=== PATIENT | male | born 1960 | race Caucasian/White ===

== ENCOUNTER 2017-08-15 18:18 | Observation (INO) | payer OTHER ==
[~2017-08-15] VITALS: Ht 172.7 cm; Wt 84.6 kg
[2017-08-15 19:15] LABS: BASOPHILS ABSOLUTE AUTO 0.05 K/mm3 (0.00-0.23); BASOPHILS PERCENT AUTO 0 % (0-2); Base Excess Venous -3.3 mmol/L; Bicarbonate Venous 22.5 mmol/L (24.0-30.0); EOSINOPHILS PERCENT AUTO 2 % (0-6); Hematocrit 41.8 % (37.0-53.0); Hemoglobin 14.2 g/dL (13.5-17.5); IMMATURE GRAN ABSOLUTE AUTO 0.06 K/mm3 (0.00-0.10); IMMATURE GRAN PERCENT AUTO 1 % (0-1); LYMPHOCYTES ABSOLUTE AUTO 3.19 K/mm3 (0.84-5.20); LYMPHOCYTES PERCENT AUTO 27 % (21-46); MONOCYTES ABSOLUTE AUTO 0.82 K/mm3 (0.16-1.47); MONOCYTES PERCENT AUTO 7 % (4-13); Mean Corpuscular HGB 30.8 pg (26.0-34.0); Mean Corpuscular Volume 91 fL (80-100); Mean Platelet Volume 11.1 fL (9.1-12.4); NEUTROPHILS ABSOLUTE AUTO 7.64 K/mm3 (1.96-9.15); NEUTROPHILS PERCENT AUTO 64 % (41-73); PCO2 Venous 30.9 mmHg (38-42); PO2 Venous 138 mmHg (38-42); Platelet Count 215 K/mm3 (150-400); RDW Coefficient Variation 12.6 % (11.7-14.2); RDW Standard Deviation 40.8 fL (35.1-46.3); Red Blood Cell Count 4.61 M/mm3 (4.30-5.90); White Blood Cell Count 11.96 K/mm3 (4.00-11.30); pH Blood Venous 7.44 (7.34-7.37)
[2017-08-15 19:33] LABS: Alanine Aminotransfer (ALT/SGP 47 U/L (12-78); Albumin/Globulin Ratio 0.8 (0.8-1.8); Alk Phos 140 U/L (50-136); Anion Gap 10 mmol/L (6-16); Aspartate Aminotrans (AST/SGOT 21 U/L (12-37); Bilirubin, Total 0.3 mg/dL (0.1-1.0); Blood Urea Nitrogen 21 mg/dL (8-24); Bun/Creatinine Ratio 22.8 (12.0-20.0); CO2, Blood 22 mmol/L (21-32); Calcium, Blood 8.4 mg/dL (8.5-10.1); Chloride, Blood 99 mmol/L (98-108); Creatinine, Blood 0.92 mg/dL (0.60-1.20); Globulin, Blood 3.8 g/dL (2.2-4.0); Glomerular Filtration Rate >60 (60-); Potassium, Blood 4.4 mmol/L (3.5-5.5); Sodium, Blood 131 mmol/L (136-145); Total Protein, Blood 6.8 g/dL (6.4-8.2)
[2017-08-15 19:49] LABS: Beta-hydroxybutyrate 7.8 mg/dL (0.2-2.8)
[2017-08-15 20:27] LABS: Glucose, Blood 671 mg/dL (70-99); Troponin I <0.015 ng/mL (0.000-0.040)
[2017-08-15] MEDS ORDERED: [UNRECOGNIZED DRUG - CODE] PO (22:06)
[2017-08-15] MEDS ORDERED: [UNRECOGNIZED DRUG - CODE] (22:09)
[2017-08-15] MEDS ORDERED: METF500 PO (23:26)
[2017-08-15] MEDS ORDERED: LISI20 PO (23:33)
[2017-08-15] MEDS ORDERED: LEVSOD100 PO (23:35)
[2017-08-16 00:15] LABS: CPK Creatine Kinase 34 U/L (39-308); Creatine Kinase MB 0.6 ng/mL (0.0-3.6); Creatine Kinase MB Index 1.8 (0.0-4.0); Troponin I <0.015 ng/mL (0.000-0.040)
[2017-08-16 01:18] LABS: Influenza A Negative (NEGATIVE); Influenza B Negative (NEGATIVE)
[2017-08-16 03:46] LABS: Source, Urine Clean Catch
[2017-08-16 03:47] LABS: Bilirubin, Urine Neg (Neg); Blood, Urine Neg (Neg); Glucose Qualitative, Urine 4+ (Neg); Ketones, Urine 1+ (Neg); Leukocyte Esterase, Urine Neg (Neg); Nitrite, Urine Neg (Neg); Protein, Urine Neg (Neg); Urobilinogen, Urine NORM (Normal)
[2017-08-16 03:50] LABS: Appearance, Urine Clear (Clear); Color, Urine Yellow (P-Yellow)
[2017-08-16 04:19] LABS: BASOPHILS ABSOLUTE AUTO 0.03 K/mm3 (0.00-0.23); BASOPHILS PERCENT AUTO 0 % (0-2); EOSINOPHILS ABSOLUTE AUTO 0.24 K/mm3 (0.00-0.68); EOSINOPHILS PERCENT AUTO 2 % (0-6); Hematocrit 38.1 % (37.0-53.0); Hemoglobin 13.2 g/dL (13.5-17.5); IMMATURE GRAN ABSOLUTE AUTO 0.04 K/mm3 (0.00-0.10); IMMATURE GRAN PERCENT AUTO 0 % (0-1); LYMPHOCYTES ABSOLUTE AUTO 4.32 K/mm3 (0.84-5.20); LYMPHOCYTES PERCENT AUTO 33 % (21-46); MONOCYTES ABSOLUTE AUTO 0.78 K/mm3 (0.16-1.47); MONOCYTES PERCENT AUTO 6 % (4-13); Mean Corpuscular HGB 31.5 pg (26.0-34.0); Mean Corpuscular HGB Conc 34.6 g/dL (31.5-36.5); Mean Corpuscular Volume 91 fL (80-100); Mean Platelet Volume 10.7 fL (9.1-12.4); NEUTROPHILS ABSOLUTE AUTO 7.54 K/mm3 (1.96-9.15); NEUTROPHILS PERCENT AUTO 58 % (41-73); Platelet Count 191 K/mm3 (150-400); RDW Coefficient Variation 12.4 % (11.7-14.2); RDW Standard Deviation 40.8 fL (35.1-46.3); Red Blood Cell Count 4.19 M/mm3 (4.30-5.90); White Blood Cell Count 12.95 K/mm3 (4.00-11.30)
[2017-08-16 04:42] LABS: CPK Creatine Kinase 33 U/L (39-308); Creatine Kinase MB 0.7 ng/mL (0.0-3.6); Creatine Kinase MB Index 2.1 (0.0-4.0); Troponin I <0.015 ng/mL (0.000-0.040)
[2017-08-16 04:43] LABS: Anion Gap 7 mmol/L (6-16); Blood Urea Nitrogen 21 mg/dL (8-24); Bun/Creatinine Ratio 27.2 (12.0-20.0); CO2, Blood 23 mmol/L (21-32); Calcium, Blood 7.7 mg/dL (8.5-10.1); Chloride, Blood 109 mmol/L (98-108); Cholesterol 79 mg/dL (50-200); Creatinine, Blood 0.77 mg/dL (0.60-1.20); Glomerular Filtration Rate >60 (60-); Glucose, Blood 326 mg/dL (70-99); Potassium, Blood 4.3 mmol/L (3.5-5.5); Sodium, Blood 139 mmol/L (136-145); Triglycerides 219 mg/dL (30-160)
[2017-08-16] MEDS ORDERED: ALBU90OI INH (14:59)
[2017-08-16] MEDS ORDERED: ASPI81CH PO (15:00)
[2017-08-16] MEDS ORDERED: BASAGLAR K100 UNIT/1 SC (15:01)
[2017-08-16] MEDS ORDERED: LISI20 PO (15:02)
[2017-08-16] MEDS ORDERED: AZIT500 PO (15:03)
[2017-08-16] MEDS ORDERED: Omeprazole20 M1 PO (15:04)
== END 2017-08-16 16:20 | disposition home or self-care (01) ==
LOC: ER 18:18 → MEDS 18:19 → ENPENDDIS 08-16 11:00 → MEDS 08-16 16:20
PROVIDERS: Emergency Medicine; Family Medicine
DX: E11.65 Type 2 diabetes mellitus with hyperglycemia (principal); I10 Essential (primary) hypertension; E87.1 Hypo-osmolality and hyponatremia; E03.9 Hypothyroidism, unspecified; R07.89 Other chest pain; D72.829 Elevated white blood cell count, unspecified; E11.10 Type 2 diabetes mellitus with ketoacidosis without coma; J44.9 Chronic obstructive pulmonary disease, unspecified; K00.7 Teething syndrome; Z79.01 Long term (current) use of anticoagulants; Z79.82 Long term (current) use of aspirin; Z79.2 Long term (current) use of antibiotics; Z79.899 Other long term (current) drug therapy; Z79.4 Long term (current) use of insulin; Z87.891 Personal history of nicotine dependence; Z88.5 Allergy status to narcotic agent
CPT/HCPCS: 36415; 71045; 80048; 80053; 81003; 82010; 82465; 82550; 82553; 82803; 82947; 83036; 84443; 84478; 84484; 85025; 87804; 93005; 93010; 94760; 96360; 96361; 96372; 96374; 99285; C9113; G0378; J1650; J1815; J7030

== ENCOUNTER 2019-08-08 22:25 | Emergency (ER) | payer OTHER ==
[~2019-08-08] VITALS: Ht 175.3 cm; Wt 90.7 kg
[~2019-08-08 22:25] MED LIST: ALBU90OI INH; ASPI81CH PO; AZIT500 PO; BASAGLAR K100 UNIT/1 SC; LEVSOD100 PO; LISI20 PO; METF500 PO; Omeprazole20 M1 PO; [UNRECOGNIZED DRUG - CODE]; [UNRECOGNIZED DRUG - CODE] PO
[2019-08-08 23:05] LABS: BASOPHILS ABSOLUTE AUTO 0.04 K/mm3 (0.00-0.23); BASOPHILS PERCENT AUTO 0 % (0-2); EOSINOPHILS ABSOLUTE AUTO 0.34 K/mm3 (0.00-0.68); EOSINOPHILS PERCENT AUTO 2 % (0-6); Hematocrit 40.2 % (37.0-53.0); Hemoglobin 13.3 g/dL (13.5-17.5); IMMATURE GRAN ABSOLUTE AUTO 0.08 K/mm3 (0.00-0.10); IMMATURE GRAN PERCENT AUTO 0 % (0-1); LYMPHOCYTES ABSOLUTE AUTO 3.03 K/mm3 (0.84-5.20); LYMPHOCYTES PERCENT AUTO 17 % (21-46); MONOCYTES ABSOLUTE AUTO 1.29 K/mm3 (0.16-1.47); MONOCYTES PERCENT AUTO 7 % (4-13); Mean Corpuscular HGB 31.7 pg (26.0-34.0); Mean Corpuscular HGB Conc 33.1 g/dL (31.5-36.5); Mean Corpuscular Volume 96 fL (80-100); Mean Platelet Volume 9.7 fL (9.1-12.4); NEUTROPHILS ABSOLUTE AUTO 13.34 K/mm3 (1.96-9.15); NEUTROPHILS PERCENT AUTO 74 % (41-73); Platelet Count 262 K/mm3 (150-400); RDW Coefficient Variation 13.8 % (11.7-14.2); White Blood Cell Count 18.12 K/mm3 (4.00-11.30)
[2019-08-08] MEDS ORDERED: PIOGLITAZONE HC15 MG PO (23:18)
[2019-08-08] MEDS ORDERED: Doxazosin Mesyla4 MG PO (23:18)
[2019-08-08] MEDS ORDERED: INSULANPEN SC (23:18)
[2019-08-08 23:25] LABS: Alanine Aminotransfer (ALT/SGP 33 U/L (12-78); Albumin, Blood 3.4 g/dL (3.4-5.0); Albumin/Globulin Ratio 0.9 (0.8-1.8); Alk Phos 87 U/L (50-136); Anion Gap 9 mmol/L (6-16); Aspartate Aminotrans (AST/SGOT 19 U/L (12-37); Bilirubin, Total 0.2 mg/dL (0.1-1.0); Blood Urea Nitrogen 14 mg/dL (8-24); Bun/Creatinine Ratio 14.4 (12.0-20.0); CO2, Blood 25 mmol/L (21-32); Calcium, Blood 8.8 mg/dL (8.5-10.1); Chloride, Blood 106 mmol/L (98-108); Creatinine, Blood 0.97 mg/dL (0.60-1.20); Globulin, Blood 3.9 g/dL (2.2-4.0); Glomerular Filtration Rate >60 (60-); Glucose, Blood 77 mg/dL (70-99); Potassium, Blood 4.4 mmol/L (3.5-5.5); Sodium, Blood 140 mmol/L (136-145); Total Protein, Blood 7.3 g/dL (6.4-8.2); Troponin I <0.015 ng/mL (0.000-0.040)
[2019-08-08] MEDS ORDERED: Zithromax250 MG PO (23:28)
[2019-08-08] MEDS ORDERED: ALBU90OI INH (23:28)
[2019-08-08] MEDS ORDERED: Prednisone50 MG PO (23:28)
[2019-08-08] MEDS ORDERED: TIOT18 INH (23:28)
== END 2019-08-09 00:30 | disposition home or self-care (01) ==
LOC: ER 22:25
PROVIDERS: Emergency Medicine
DX: J44.1 Chronic obstructive pulmonary disease with (acute) exacerbation (principal); E11.9 Type 2 diabetes mellitus without complications; I10 Essential (primary) hypertension; E03.9 Hypothyroidism, unspecified; Z88.6 Allergy status to analgesic agent; Z79.82 Long term (current) use of aspirin; Z79.4 Long term (current) use of insulin; Z79.899 Other long term (current) drug therapy; F17.210 Nicotine dependence, cigarettes, uncomplicated
CPT/HCPCS: 36415; 71046; 80053; 84484; 85025; 93005; 93010; 94640; 96374; 99283-25; J1100

== ENCOUNTER 2024-08-20 23:36 | Emergency (ER) | payer MEDICARE, OTHER ==
[~2024-08-20] VITALS: Ht 162.6 cm; Wt 62.6 kg
[~2024-08-20 23:36] MED LIST changes: +Doxazosin Mesyla4 MG PO; +EUTHYROX50 MCG PO; +HUMALOG KW100 UNIT/1; +INSULANPEN SC; -LEVSOD100 PO; +PIOGLITAZONE HC15 MG PO; +Prednisone50 MG PO; +SPIRIVA RESPIMAT4 G3 INH; +TIOT18 INH; +Zithromax250 MG PO
[2024-08-21 00:07] VITALS: BP 123/78
== END 2024-08-21 00:15 | disposition home or self-care (01) ==
LOC: ER 23:36
DX: Z76.0 Encounter for issue of repeat prescription (principal); E11.9 Type 2 diabetes mellitus without complications; E03.9 Hypothyroidism, unspecified; I10 Essential (primary) hypertension; F17.210 Nicotine dependence, cigarettes, uncomplicated
CPT/HCPCS: 99281